=== PATIENT | female | born 1960 | race African-American/Black ===

== ENCOUNTER 2023-05-16 00:15 | Emergency (ER) | payer SELFPAY ==
[~2023-05-16] VITALS: Ht 185.4 cm; Wt 90.7 kg
[2023-05-16] MEDS: KETOROLAC TROMETHAMINE 15 MG/ML VIAL IV ONE (01:30)
[2023-05-16] MEDS ORDERED: KETOROLAC TROMETHAMINE 15 MG/ML VIAL ONE (02:54)
[2023-05-16] MEDS ORDERED: KETOROLAC TROMETHAMINE INJ 60 MG/2 ML VIAL IM ONE ×2 (02:58→03:30)
[2023-05-16 03:22] VITALS: BP 131/60; TEMP 98.1; O2SAT 100
== END 2023-05-16 03:23 | disposition left against medical advice (07) ==
LOC: ER 00:19
DX: R10.30 Lower abdominal pain, unspecified (principal); Z59.00 Homelessness unspecified
CPT/HCPCS: J1885